=== PATIENT | female | born 1970 | race Caucasian/White ===

== ENCOUNTER → 2024-02-04 08:02 | Outpatient (REF) | payer OTHER, SELFPAY | LOC: RAD 08:02 | PROVIDERS: ATTENDING PHYSICIAN Obstetrics & Gynecology; FAMILY PHYSICIAN Family Medicine | DX: R10.2 Pelvic and perineal pain (principal) | CPT/HCPCS: 76830; 76856 ==

== ENCOUNTER 2024-03-06 19:54 | Emergency (ER) | payer OTHER, SELFPAY ==
[2024-03-06 19:56] VITALS: BP 110/74
--- NOTE | 2024-03-06 22:18 | ED.GENMED ---
History of Present Illness
General
Chief Complaint: Back Pain
Time Seen by Provider: 03/06/24 22:16
Travel History
Have you had any contact with someone who has COVID-19?: No
Do you have any symptoms of coronavirus? Fever > 100 degrees, chills, cough, shortness of breath, sore throat, loss of taste or smell, muscle aches, or headache?: No
History of Present Illness
History of Present Illness:
HPI: Patient presents due to right-sided low back pain. She has had pain over the past week without any significant injury. The pain was feeling somewhat better after a massage however now acutely worsened to the point that she had to leave work.
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 She reports no bowel or bladder dysfunction but feels that there is something markedly abnormal in the right low back. The pain does not radiate into the right lower
extremity. She has no loss of function to the right lower extremity.
EXAM:
GENERAL: Well appearing but appears somewhat uncomfortable
HEENT: Moist oral mucosa
CARDIOVASCULAR: No murmurs, normal heart rate, regular rhythm, No chest wall tenderness
PULMONARY: No respiratory distress, breath sounds are clear and equal
ABDOMEN: Soft with no peritoneal signs, no tenderness
BACK: There is no significant midline tenderness nor L-spine tenderness, there is some vague to palpation in the right lumbosacral region
NEUROLOGIC: Excellent strength all extremities, no coordination deficits
PSYCHIATRIC: Appropriate mental status, normal insight and judgement
EXTREMITIES: Nontender, no edema, moves all extremities equally
SKIN: No rash, no lesions
TIME OF INITIAL ENCOUNTER: 10:30 PM
NUMBER AND COMPLEXITY OF PROBLEMS ADDRESSED AT THE ENCOUNTER
� Chronic conditions affecting care: Anxiety/depression, she states she has had CUONG procedure on the left hip
� Acute Exacerbation and/or Progression of Chronic Illness: This is an acute problem
� Differential Diagnosis includes: Lumbosacral strain, sciatica less likely given the normal straight leg raise, herniated disc, spinal stenosis
AMOUNT AND/OR COMPLEXITY OF DATA TO BE REVIEWED AND ANALYZED
� I performed an independent evaluation of and my interpretation is:
EKG:
CT: CT imaging personally reviewed and I agree with radiologist interpretation that there is no clear abnormality seen in the abdomen pelvis. Radiologist noticed some questionable haziness in the fat surrounding the exiting
right L5 nerve.
X-rays:
Laboratory Studies:
Other:
� Review of other/old records: The patient had colonoscopy in the past
� Clinical information was obtained by an independent historian:
� Prescriptions/Medications Considered but not given:
� Further testing considered but not performed:
RISK OF COMPLICATIONS AND/OR MORBIDITY OR MORTALITY OF PATIENT MANAGEMENT
� Social determinants of health affecting care: Lives at home, works as a crm campaign manager
� Discussion with other providers:
� Escalation of care including admission/observation vs risk of discharge considered: Patient reports rather severe pain. Will give Toradol and a Percocet. Will also obtain imaging. On reassessment at 2 AM, the patient has
some ongoing pain but appears more comfortable.
Past History
Past History
ED Past Medical History: Other (Recurrent UTIs) and Other (Anxiety)
ED Past Surgical History: None
Social History
Tobacco: Non-smoker
Alcohol: Occasional
Drug: None
Personal:
Living: with family
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
Family History
Family History: Other
Phy Exam
Physical Exam
Physical Exam:
See HPI
Course
Orders/Labs/Results
Orders:
Orders
03/06/24 22:25
Ketorolac [Toradol] 30 mg IM NOW STA
03/06/24 22:26
Oxycodone/Acetaminophen [Percocet 5/325] 1 tablet PO NOW STA
03/07/24 00:02
CT Abd/pel Without Iv Or Oral Urgent
Reason For Exam: severe R flank pain
CT Lumbar Spine W/o Iv Contras Urgent
Reason For Exam: severe R back pain acute
Vital Signs
Initial and Last Documented VS:
Initial Vital Signs
Temp Pulse Resp BP Pulse Ox
97.8 F 82 18 110/74 100
03/06/24 19:56 03/06/24 19:56 03/06/24 19:56 03/06/24 19:56 03/06/24 19:56
Last Documented Vital Signs
Temp Pulse Resp BP Pulse Ox
97.8 F 82 18 110/74 100
03/06/24 19:56 03/06/24 19:56 03/06/24 19:56 03/06/24 19:56 03/06/24 19:56
*Critical Care Note
Total Time (30-74mins, 75-104mins- exclusive of procedures): Not Applicable
ED Attending Note
-
Portions of this chart may have been created with voice recognition software.� Occasional wrong word or��sound alike� substitutions may have occurred due to the inherent limitations of voice recognition software.
Discharge Plan
Departure
Patient Disposition: Home (Routine Discharge)
Date of Disposition: 03/07/24
Time of Disposition: 02:04
Patient with high blood pressure during this ER visit?: Yes
Discharge Problem:
Low back pain
Instructions: Low Back Pain (DC)
Prescriptions:
New
cyclobenzaprine 10 mg tablet
10 mg PO TID PRN (Reason: pain) Qty: 20 0RF
oxycodone-acetaminophen [Endocet] 5-325 mg tablet
1 - 2 tab PO Q8H PRN (Reason: Pain) Qty: 14 0RF
No Action
alprazolam 0.25 MG tablet
0.25 mg PO HS
sertraline 25 MG tablet
25 mg PO HS
prednisone 20 MG tablet
40 mg PO DAILY Qty: 8 0RF
diazepam 5 MG tablet
5 mg PO TIDPRN PRN (Reason: muscle spasm) Qty: 6 0RF
Referrals:
UNKNOWN - PT DOES,NOT KNOW [Family Provider] -
Activity Restrictions/Additional Instructions:
I sent a prescription for both Percocet and Flexeril to your pharmacy. Both of these can be sedating I did recommend not taking them together. If you take Percocet I recommend trying something like MiraLAX to help prevent constipation. Follow-up
with your primary care doctor. The CAT scan of the abdomen and pelvis shows no clear cause of your pain. There is no sign for kidney stone stuck in the ureter. The radiologist noticed some questionable haziness of the fat surrounding the exiting
right L5 nerve which is nonspecific. Your doctor may consider MRI to evaluate for disc bulge or other etiology.
Interventions
Interventions:
*Risk Screen - Suicide Last Done: 03/06/24 19:56
*General Assessment Last Done: 03/06/24 22:46
*Neglect/Abuse Screening Last Done: 03/06/24 19:56
ED- Fall Risk Assessment Last Done: 03/06/24 23:03
*ED COVID-19 Vaccine History Last Done: 03/06/24 22:46
ED-Musculoskeletal Assessment Last Done: 03/06/24 22:46
Discharge Date and Time
Print Language: RWANDAN
[2024-03-06 22:44] VITALS: BMI 21.8
[2024-03-06] MEDS: TORADOL 30 MG IM (22:47)
[2024-03-06] MEDS: PERCOCET 5/325 1 TABLET PO (22:47)
[2024-03-07 02:25] VITALS: BP 119/58
[2024-03-07] MEDS: DELTASONE 50 MG PO (02:41)
[2024-03-07] MEDS: PERCOCET 5/325 1 TABLET PO (02:42)
== END 2024-03-07 02:40 | disposition home or self-care (01) ==
LOC: EMR 19:54
PROVIDERS: EMERGENCY PHYSICIAN Emergency Medicine
DX: M54.50 Low back pain, unspecified (principal)
CPT/HCPCS: 99284; 96372; 72131; 74176

== ENCOUNTER → 2024-06-21 12:59 | Outpatient (REF) | payer OTHER, SELFPAY | LOC: WDC 12:59 | PROVIDERS: ATTENDING PHYSICIAN Midwife | DX: R92.2 Inconclusive mammogram (principal) | CPT/HCPCS: 76641 ==

== ENCOUNTER → 2024-11-11 13:48 | Outpatient (REF) | payer OTHER, SELFPAY | LOC: WDC 13:48 | PROVIDERS: ATTENDING PHYSICIAN Obstetrics & Gynecology; FAMILY PHYSICIAN Family Medicine | DX: Z12.31 Encounter for screening mammogram for malignant neoplasm of breast (principal) | CPT/HCPCS: 77063; 77067 ==

== ENCOUNTER → 2025-02-24 09:35 | Outpatient (REF) | payer OTHER, SELFPAY | LOC: HWRAD 09:35 | PROVIDERS: ATTENDING PHYSICIAN Student in an Organized Health Care Education/Training Program; FAMILY PHYSICIAN Physician Assistant Medical | DX: R10.2 Pelvic and perineal pain (principal) | CPT/HCPCS: 76830; 76856 ==

== ENCOUNTER → 2025-05-10 13:14 | Outpatient (REF) | payer OTHER, SELFPAY | LOC: WDC 13:14 | PROVIDERS: ATTENDING PHYSICIAN Obstetrics & Gynecology | DX: R92.30 Dense breasts, unspecified (principal) | CPT/HCPCS: 76641 ==